=== PATIENT | male | born 1960 | race Caucasian/White ===

== ENCOUNTER 2016-09-17 13:55 | Emergency (ER) | payer OTHER ==
--- NOTE | ~2016-09-17 | CR127 ---
[facility] A Service of [facility] RADIOLOGY TEXT RESULTS PATIENT: TONEI SHIRLEY SR LOCATION: [facility] : 58 UNIT #: [id number] AGE: [address]: Nathaniel Baker DO SEX: M ORDER DR: [id number] [facility] [address] [place], [place] [address] [id number] E MR#: [id number] Acc #: [id number] NAME: TONIE SHIRLEY : 1960 SEX: M STUDY DATE/TIME: 09/17/2016 13:52 UNIT: [facility] ROOM: STUDY DESCRIPTION: CR Foot Complete Min 3 View Rt Attending Physician: Nathaniel Baker D.O. Ordering Physician: Nathaniel Baker D.O. Primary Care Physician: Sravani Rutledge M.D. MEDICAL IMAGING REPORT This report is preliminary unless electronic signature is present EXAM Right foot series dated 09/17/2016 COMPARISON Right foot series dated 01/11/2010 HISTORY Right second toenail has been partially ripped off and is bloody for the last 2 days. Bilateral feet pain and swelling. FINDINGS 3 views of the right foot were obtained. No acute displaced fracture, dislocation, or periosteal thickening is seen. The mentioned soft tissue injury and toenail injury are difficult to see in this modality. Atherosclerotic vascular calcifications are noted in the foot suggestive of peripheral vascular disease and diabetes. Posterior and plantar calcaneal spurs are seen. Dictated by... Lucita Allen M.D. THIS IS AN ELECTRONICALLY VERIFIED REPORT Lucita Allen M.D. at 09/19/2016 3:07 PM CPR/meenu TD: 09/17/2016 15:14 JOB #: [id number] MEDICAL IMAGING REPORT Page 1 of 1 COPY
--- NOTE | ~2016-09-17 | US84 ---
[id number] [facility] [address] [place], [place] [address] [id number] E MR#: [id number] Acc #: [id number] NAME: TONIE SHIRLEY : 1960 SEX: M STUDY DATE/TIME: 09/17/2016 15:55 UNIT: [facility] ROOM: STUDY DESCRIPTION: US LE Veins Complete Rikki Stdy Attending Physician: Nathaniel Baker D.O. Ordering Physician: Nathaniel Baker D.O. Primary Care Physician: Sravani Rutledge M.D. MEDICAL IMAGING REPORT This report is preliminary unless electronic signature is present EXAM Bilateral lower extremity venous ultrasound. HISTORY Bilateral lower extremity pain for 1 day. TECHNIQUE Venous ultrasound examination of both lower extremities was performed using grayscale, spectral Doppler and color flow Doppler imaging. FINDINGS The examination is negative. There is no evidence of deep venous thrombus from the groin to the lower calf bilaterally. Visualized greater saphenous veins are also patent. IMPRESSION Negative examination. No evidence of lower extremity DVT. Dictated by... Kvng Blue M.D. THIS IS AN ELECTRONICALLY VERIFIED REPORT Kvng Blue M.D. at 09/17/2016 11:43 PM KIMBERLEY/kathy TD: 09/17/2016 17:15 JOB #: [id number] MEDICAL IMAGING REPORT Page 1 of 1 COPY
--- NOTE | ~2016-09-17 | EKG ---
PATIENT: TONIE SHIRLEY UNIT #: [id number] Ventricular Rate: 80 BPM Atrial Rate: 80 BPM P-R Interval: 198 ms QRS Duration: 90 ms Q-T Interval: 378 ms QTC Calculation(Bezet): 435 ms P Moore: 41 degrees Calculated R Moore: 71 degrees Calculated T Moore: 45 degrees Diagnosis Line: Normal sinus rhythm Diagnosis Line: Nonspecific ST and T wave abnormality Diagnosis Line: When compared with ECG of 29-OCT-2013 00:17, Diagnosis Line: Nonspecific T wave abnormality now evident in Diagnosis Line: Lateral leads Diagnosis Line: Confirmed by DEJAH ESPARZA MD ([id number]) on Diagnosis Line: 09/18/2016 8:53:12 AM INTERPRETING TONY BROOKS
--- NOTE | ~2016-09-17 | CR126 ---
[facility] A Service of [facility] RADIOLOGY TEXT RESULTS PATIENT: TONIE SHIRLEY SR LOCATION: [facility] : 58 UNIT #: [id number] AGE: [address]: Nathaniel Baker DO SEX: M ORDER DR: [id number] [facility] [address]. [place], [place] [address] [id number] E MR#: [id number] Acc #: [id number] NAME: TONIE SHIRLEY SR : 1960 SEX: M STUDY DATE/TIME: 09/17/2016 13:50 UNIT: [facility] ROOM: STUDY DESCRIPTION: CR Foot Complete Min 3 View Lt Attending Physician: Nathaniel Baker D.O. Ordering Physician: Nathaniel Baker D.O. Primary Care Physician: Sravani Rutledge M.D. MEDICAL IMAGING REPORT This report is preliminary unless electronic signature is present REVISED REPORT SEE ADDENDUM EXAM Left foot series dated 09/17/2016 COMPARISON Right foot series dated 09/17/2016. No left foot priors. HISTORY Right second toenail has been partially ripped off and is bloody the last 2 days. FINDINGS 3 views of the left foot were obtained. No acute displaced fracture or dislocation. Vascular calcifications are noted in the soft tissues of the distal aspect of the leg, ankle and foot suggestive of peripheral vascular disease and diabetes mellitus. No acute displaced fracture, dislocation. No periosteal thickening is seen. There is a old fractured spur or bony fragment noted in the posterior calcaneus. It has a chronic appearance. Dictated by... Lucita Allen M.D. THIS IS AN ELECTRONICALLY VERIFIED REPORT Lucita Allen M.D. at 09/19/2016 3:07 PM CPR/meenu TD: 09/17/2016 15:12 JOB #: [id number] [facility] A Service of [facility] RADIOLOGY TEXT RESULTS PATIENT: TONIE SHIRLEY SR [id number] : 58 UNIT #: [id number] AGE: [address]: Nathaniel Baker DO SEX: M ORDER DR: ADDENDUM Additional history: Bilateral feet pain and swelling for the last 2 days with partially ripped off and blood right second toenail. No obvious known trauma. Patient woke up with symptoms. Dictated by... Lucita Allen M.D. THIS IS AN ELECTRONICALLY VERIFIED REPORT Lucita Allen M.D. at 09/22/2016 3:04 PM CPR/meenu TD: 09/17/2016 15:39 JOB #: [id number] MEDICAL IMAGING REPORT Page 1 of 1 COPY
[~2016-09-17 13:55] MED LIST: AMOXICILLIN PO; AUGMENTIN PO; AVANDAMET 2 MG/1 TAB PO; AVANDAMET PO; FLEXERIL10 MG PO; PEN-VEE K PO; TYLENOL #3 PO; ULTRACET TABLET1 TAB PO; UNKNOWN DIABETIC MED; VICODIN 5/1 TAB 5/50 PO
[2016-09-17 14:50] LABS: BASOPHIL# 0.1 X10e3 (0-0.3); BASOPHIL% 0.9 % (0-2.5); EOSINOPHIL# 0.2 X10e3 (0-0.7); EOSINOPHIL% 2.7 % (0.0-7.0); HEMATOCRIT 43.9 % (38.0-50.0); HEMOGLOBIN 14.8 gm/dL (13.0-16.0); LYMPHOCYTE# 1.6 X10e3 (1.0-3.5); LYMPHOCYTE% 24.6 % (17.0-45.0); MEAN CELL VOLUME 98.7 FL (83-96); MEAN CORPUSCULAR HEMOGLOBIN 33.3 PG (28-34); MEAN CORPUSCULAR HGB CONC 33.7 g/dL (30-36); MEAN PLATELET VOLUME 7.2 FL (6.5-11.5); MONOCYTE# 0.8 X10e3 (0-1.0); MONOCYTE% 12.3 % (3.0-12.0); NEUTROPHIL# 3.8 X10e3 (1.5-7.1); NEUTROPHIL% 59.5 % (40-75); PLATELET COUNT 216 X10e3 (140-420); RED BLOOD COUNT 4.45 X10e (3.90-5.60); RED CELL DISTRIBUTION WIDTH 12.5 % (11.0-15.5); WHITE BLOOD COUNT 6.4 X10e3 (4.0-10.5)
[2016-09-17 15:01] LABS: DIFF IND NO
[2016-09-17 15:10] LABS: PARTIAL THROMBOPLASTIN TIME 24.3 SECONDS (23.5-31.3); PROTHROMBIN TIME (PATIENT) 10.4 SECONDS (9.6-11.5)
[2016-09-17 15:15] LABS: CALCIUM SERUM 8.8 mg/dL (8.4-10.2); CARBON DIOXIDE 22 mmol/L (22-31); CHLORIDE 102 mmol/L (100-111); CREATININE SERUM 0.4 mg/dL (0.6-1.4); GLOM FILT RATE Estimated 131.9 mL/min (>60); GLUCOSE FASTING 141 mg/dL (70-110); POTASSIUM 3.1 mmol/L (3.5-5.1); SODIUM 140 mmol/L (135-145)
[2016-09-17 15:16] LABS: BLOOD UREA NITROGEN <5 mg/dL (9-23)
[2016-09-17 15:36] LABS: URINE SOURCE CLEAN CATCH
[2016-09-17 15:41] LABS: URINE APPEARANCE CLEAR; URINE BILIRUBIN NEG (NEG); URINE BLOOD NEG (NEG); URINE COLOR YELLOW; URINE GLUCOSE >1000 MG/DL (NEG); URINE KETONE 3+ (NEG); URINE LEUKOCYTE ESTERASE NEG (NEG); URINE NITRATE NEG (NEG); URINE PH 5.5 (5-8); URINE PROTEIN NEG (NEG); URINE SPECIFIC GRAVITY 1.035 (1.003-1.035)
[2016-09-17 15:56] LABS: CULTURE INDICATED? NO
== END 2016-09-17 17:35 | disposition home or self-care (01) ==
LOC: CED 13:55
PROVIDERS: Emergency Medicine
DX: S91.301A Unspecified open wound, right foot, initial encounter (principal); E11.9 Type 2 diabetes mellitus without complications; I10 Essential (primary) hypertension; X58.XXXA Exposure to other specified factors, initial encounter; Y92.9 Unspecified place or not applicable
CPT/HCPCS: 36415; 73630; 80048; 81003; 82947; 85025; 85610; 85730; 93005; 93970; 96360; 99284